=== PATIENT | male | born 1955 | race Caucasian/White ===

== ENCOUNTER 2018-01-14 01:32 | Inpatient (IN) | payer MEDICAID, OTHER ==
[2018-01-14 02:37] LABS: URINE BILIRUBIN NEGATIVE (NEGATIVE); URINE BLOOD NEGATIVE (NEGATIVE); URINE GLUCOSE (UA) NEGATIVE (NEGATIVE); URINE LEUKOCYTE ESTERASE NEGATIVE Leu/uL (NEGATIVE); URINE PROTEIN TRACE mg/dL (<30 mg/dL); URINE UROBILINOGEN 0.2 E.U./dL (<1 E.U./dL)
[2018-01-14 02:38] LABS: BASO # 0.04 K/mm3 (0.0-2.0); BASO % 0.4 % (0.0-3.0); EOS # 0.2 (0.0-0.7); EOS % 1.6 % (1.5-5.0); GRAN # 7.17 (1.4-6.5); GRAN % 62.7 % (50.0-68.0); HEMOGLOBIN 13.7 g/dL (14.0-18.0); LYMPH # 3.3 (1.2-3.4); MEAN CELL VOLUME 90.9 fl (80.0-105.0); MEAN CORPUSCULAR HEMOGLOBIN 29.8 pg (25.0-35.0); MEAN CORPUSCULAR HGB CONC 32.8 g/dl (31.0-37.0); MEAN PLATELET VOLUME 10.3 fl (7.0-11.0); MONO # 0.7 (0.1-0.6); MONO % 6.3 % (1.0-6.0); RBC 4.6 10^6/uL (3.5-6.1); RED CELL DISTRIBUTION WIDTH 12.9 % (11.5-14.5); WHITE BLOOD COUNT 11.4 10^3/ul (4.5-11.0)
[2018-01-14 02:40] LABS: URINE APPEARANCE CLEAR (CLEAR); URINE COLOR YELLOW (YELLOW)
[2018-01-14 02:46] LABS: PARTIAL THROMBOPLASTIN TIME 32.1 Seconds (25.1-36.5); PROTHROMBIN TIME 11.4 SECONDS (9.4-12.5)
[2018-01-14 02:48] LABS: ALB/GLOB RATIO 1.2 (1.1-1.8); ALBUMIN 4.2 g/dL (3.0-4.8); ALT/SGPT 38 U/L (7-56); AST/SGOT 27 U/L (17-59); BLOOD UREA NITROGEN 22 mg/dL (7-21); CALCIUM 9.5 mg/dL (8.4-10.5); GFR NON-AFRICAN AMERICAN > 60; LIPASE 110 U/L (23-300)
[2018-01-14 02:49] LABS: D DIMER < 200 ng/mlDDU (0-243)
[2018-01-14 02:51] LABS: URINE EPITHELIAL CELLS 0 - 2 /hpf (0-5); URINE RBC 0 - 2 /hpf (0-2); URINE WBC 0 - 2 /hpf (0-6)
[2018-01-14] MEDS ORDERED: Iohexol 350 MG/100 ML VIAL ONE (02:58)
[2018-01-14 03:05] LABS: TROPONIN I < 0.01 ng/mL
--- NOTE | 2018-01-14 03:12 | ED PDOC ---
Arrival/HPI - General Chief Complaint: Chest Pain Time Seen by Provider: 01/14/18 01:48 Historian: Patient - History of Present Illness Narrative History of Present Illness (Text): 01/14/18 03:14 62 year old male, whose past medical history includes Diabetes, Hyperlipidemia, hypertension, and Thayer's disease, presents to the emergency department with left sided chest and left sided abdominal pain, for about 10 hours. Patient states he was going to work at about 18:00 yesterday, when the pain started. Patient states the pain then began to get progressively worse. Patient states it hurts him to breath deep, and that it is painful to the touch. Patient denies any fevers, chills, headache, dizziness, nausea, vomiting, diarrhea, or any other complaint. Time/Duration: 24 hours Symptom Onset: Gradual Symptom Course: Unchanged Activities at Onset: Light Past Medical History - Provider Review Nursing Documentation Reviewed: Yes - Tetanus Immunization Tetanus Immunization: Up to Date - Endocrine/Metabolic Hx Endocrine Disorders: Yes Hx Diabetes Mellitus Type 2: Yes - Psychiatric Hx Psychophysiologic Disorder: No Hx Substance Use: No - Surgical History Hx Orthopedic Surgery: Yes (R HIP) - Anesthesia Hx Anesthesia: Yes Family/Social History - Physician Review Nursing Documentation Reviewed: Yes Family/Social History: No Known Family HX Smoking Status: Never Smoked Hx Alcohol Use: No Hx Substance Use: No Allergies/Home Meds Allergies/Adverse Reactions: Allergies No Known Allergies Allergy (Verified 01/05/15 16:57) Home Medications: Home Meds Medication Instructions Recorded Confirmed Metformin HCl [Metformin] 1,000 mg PO BID 01/05/15 01/05/15 RX: Prednisone [Sterapred Ds] 10 mg PO DAILY 01/05/15 01/05/15 Review of Systems - Physician Review All systems were reviewed & negative as marked: Yes - Review of Systems Constitutional: absent: Fevers, Night Sweats Cardiovascular: Chest Pain Gastrointestinal: Abdominal Pain. absent: Diarrhea, Nausea, Vomiting Neurological: absent: Headache, Dizziness Physical Exam - Physical Exam Narrative Physical Exam (Text): 01/14/18 03:28 Gen: VS reviewed, alert, well developed, well nourished, nontoxic, mild distress. ENT: normal pharynx. Eye: EOMI, PERRL. Neck: no JVD, supple, no adenopathy. CV: regular rate, regular rhythm, no rubs, no murmur, no gallops, S1, S2, pulses equal and strong. Pulm: no distress, clear to auscultation, no wheeze, no rhonchi, breath sounds equal, no rales. Abd: diffuse tenderness left lateral ribcage and LUQ, some guarding, no rebound, no rigidity, normal bowel sounds. Ext: no edema. Skin: good color, no rash, no cyanosis. Psych: responds appropriately to questions, normal affect. Neuro: oriented x 3, CN2-12 intact grossly, motor intact, sensation intact. Vital Signs Reviewed: Yes Vital Signs Temp Pulse Resp BP Pulse Ox 01/14/18 01:52 98.0 F 85 21 101/54 L 97 Temperature: Afebrile Blood Pressure: Hypotensive Pulse: Regular Respiratory Rate: Normal Appearance: Positive for: Well-Appearing, Non-Toxic, Comfortable Pain Distress: None Mental Status: Positive for: Alert and Oriented X 3 Finger Stick Blood Glucose: 118 Medical Decision Making ED Course and Treatment: 01/14/18 03:32 Impression: 62 year old male presents with left sided chest and left sided abdominal pain. Plan: -- CTA chest -- Toradol -- Tylenol -- Reassess and disposition Prior Visits: Notes and results from previous visits were reviewed. Progress Notes: 01/14/18 05:52 admit accepted by hospitalist, dr. alvarez. patient to be admitted for chest pain rule out acs. patient noted to have relative hypotension with marginal response to IVF. hydrocortison given with the consideration current clinical presentation could be adrenal insufficiency - Lab Interpretations Lab Results: 01/14/18 02:00 01/14/18 02:00 Lab Results 01/14/18 02:30: Urine Color Yellow, Urine Appearance Clear, Urine pH 6.0, Ur Specific [place] 1.025, Urine Protein Trace H, Urine Glucose (UA) Negative, Urine Ketones Negative, Urine Blood Negative, Urine Nitrate Negative, Urine Bilirubin Negative, Urine Urobilinogen 0.2, Ur Leukocyte Esterase Negative, Urine RBC 0 - 2, Urine WBC 0 - 2, Ur Epithelial Cells 0 - 2, Urine Bacteria None 01/14/18 02:00: Sodium 138, Potassium 3.9, Chloride 100, Carbon Dioxide 31, Anion Gap 12, BUN 22 H, Creatinine 0.9, Est GFR ( Amer) > 60, Est GFR (Non-Af Amer) > 60, Random Glucose 133 H, Calcium 9.5, Total Bilirubin 0.3, AST 27, ALT 38, Alkaline Phosphatase 53, Troponin I < 0.01, Total Protein 7.5, Album in 4.2, Globulin 3.4, Albumin/Globulin Ratio 1.2, Lipase 110 01/14/18 02:00: PT 11.4, INR 1.00, APTT 32.1, D-Dimer, Quantitative < 200 01/14/18 02:00: WBC 11.4 H, RBC 4.60, Hgb 13.7 L, Hct 41.8 L, MCV 90.9, MCH 29.8, MCHC 32.8, RDW 12.9, Plt Count 232, MPV 10.3, Gran % 62.7, Lymph % (Auto) 29.0, [place] % (Auto) 6.3 H, Eos % (Auto) 1.6, Baso % (Auto) 0.4, Gran # 7.17 H, Lymph # (Auto) 3.3, [place] # (Auto) 0.7 H, Eos # (Auto) 0.2, Baso # (Auto) 0.04 - RAD Interpretation Narrative RAD Interpretations (Text): 01/14/18 04:19 CTA OF THE CHEST WITH IV CONTRAST CLINICAL HISTORY: Suspected pulmonary embolus. TECHNIQUE: Axial and reformatted sagittal and coronal images of the chest obta ined after bolus IV contrast administration. FINDINGS: Bilateral basilar subsegmental atelectatic pulmonary changes. Bronchiectatic changes in the right lower lobe. Normal enhancement of the main pulmonary artery and right and left pulmonary arteries. Normal enhancement of the bilateral peripheral pulmonary arteries. There is no demonstrated pulmonary embolism. Normal thoracic aorta and visualized great vessels. There is no demonstrated aortic dissection. Mildly enlarged heart and normal pericardium. Normal mediastinum. Normal hilar regions. Normal visualized trachea and bronchi. The lungs are well expanded. Normal pulmonary parenchyma. Normal pleura. Normal chest wall structures. Normal osseous structures. Normal visualized upper abdomen. IMPRESSION: No demonstrated pulmonary embolism or arterial dissection. Bronchiectatic changes of the right lower lobe. Bilateral basilar atelectatic pulmonary changes. Radiology Orders: 01/14/18 02:24 ANGIO CHEST PE PROTOCOL [CT] Stat Cna Caregiver: Radiologist - Medication Orders Current Medication Orders: Discontinued Medications Acetaminophen (Tylenol 325mg Tab) 975 mg PO STAT STA Stop: 01/14/18 02:25 Last Admin: 01/14/18 02:35 Dose: 975 mg Ketorolac Tromethamine (Toradol) 30 mg IVP STAT STA Stop: 01/14/18 02:25 Last Admin: 01/14/18 02:32 Dose: 30 mg MAR Pain Assessment Document 01/14/18 02:32 CNR (Rec: 01/14/18 02:35 CNR [id number]) Pain Reassessment Is this a pain reassessment? No IVP Administration Document 01/14/18 02:32 CNR (Rec: 01/14/18 02:35 CNR [id number]) Charges for Administration # of IVP Administrations 1 - Scribe Statement The provider has reviewed the documentation as recorded by the Heidyibphil Livingston Provider Scribe Attestation: All medical record entries made by the Scribe were at my direction and personally dictated by me. I have reviewed the chart and agree that the record accurately reflects my personal performance of the history, physical exam, medical decision making, and the department course for this patient. I have also personally directed, reviewed, and agree with the discharge instructions and disposition. Disposition/Present on Arrival - Present on Arrival Any Indicators Present on Arrival: No History of DVT/PE: No History of Uncontrolled Diabetes: Yes Urinary Catheter: No History of Decub. Ulcer: No History Surgical Site Infection Following: None - Disposition Have Diagnosis and Disposition been Completed?: Yes Diagnosis: Hypotension Disposition: HOSPITALIZED Disposition Time: 05:43 Patient Plan: Admission Patient Problems: Current Active Problems Problem Status Onset Hypotension Acute Condition: STABLE Forms: [place] [employer]TENDED [employer] ([place])
[2018-01-14] MEDS ORDERED: Sodium Chloride 0.9% 1,000 ML IV STA ×3 (03:31→05:32)
--- NOTE | 2018-01-14 06:55 | CP.PCM.HP ---
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 Patient states pain is sharp and worsened with deep respiration. Patient presented with complaints of gradually worsening 8/10 left sided flank pain radiating to the left flank with associated chest pain that began at 1800. Pain was intolerable by 0100, prompting him to present to the ED. Symptoms worsen with palpation and respiration. He notes that CP is localized to the left axillary region and radiates down the left flank. Pain decreased to his baseline 3/10 pain upon evaluation. He has had similar symptoms in the past. He also complains of left scrotal pain that began 2 days ago. Denies trauma, erythema, and discharge. Patient is compliant with medication regimens for chronic conditions, but could not provide list of current medications. Patient denies any fevers, chills, headache, dizziness, nausea, vomiting, diarrhea, changes in urination and bowel habits, diaphoresis, hematuria, dysuria. No other acute complaints. PMHx: DM, HTN, Hood's Disease (diagnosed in 2001) PSHx: denies All: NKDA Social: denies ETOH tobacco and substance abuse Fam Hx: denies Meds: compliant but no list provided. Please follow up with patient and pharmacy PCP: Dr. Sawant Endocrine: Dr. Koenig Present on Admission - Present on Admission Any Indicators Present on Admission: No Review of Systems - Review of Systems Review of Systems: 12 point ROS was completed and negative except as described in HPI. Past Patient History - Tetanus Immunizations Tetanus Immunization: Up to Date - Past Social History Smoking Status: Never Smoked - ENDOCRINE/METABOLIC Hx Endocrine Disorders: Yes Hx Diabetes Mellitus Type 2: Yes - PSYCHIATRIC Hx Psychophysiologic Disorder: No Hx Substance Use: No - SURGICAL HISTORY Hx Orthopedic Surgery: Yes (R HIP) - ANESTHESIA Hx Anesthesia: Yes Meds Allergies/Adverse Reactions: Allergies Allergy/AdvReac Type Severity Reaction Status Date / Time No Known Allergies Allergy Verified 01/05/15 16:57 Physical Exam - Constitutional Appears: Well, Toxic, No Acute Distress - Head Exam Head Exam: ATRAUMATIC, NORMOCEPHALIC - Eye Exam Eye Exam: EOMI, Normal appearance Pupil Exam: PERRL - ENT Exam ENT Exam: Mucous Membranes Moist - Neck Exam Neck exam: Positive for: Normal Inspection. Negative for: Tenderness, Thyromega ly - Respiratory Exam Respiratory Exam: Chest Wall Tenderness (TTP at placement of greatest pain on 5th midclavicular line), Decreased Breath Sounds, Clear to Auscultation Bilateral, NORMAL BREATHING PATTERN. absent: Accessory Muscle Use, Rales, Rhonchi, Wheezes, Respiratory Distress - Cardiovascular Exam Cardiovascular Exam: RRR, +S1, +S2 - GI/Abdominal Exam GI & Abdominal Exam: Hyperactive Bowel Sounds, Soft. absent: Distended, Guarding, Hernia, Rebound, Rigid, Tenderness Additional comments: morbid obesity. + suprapubic tenderness - Exam Exam: Testicular Tenderness (L>R). absent: Uretheral Discharge External exam: absent: Ecchymosis, Erythema, Lesions, Swelling - Extremities Exam Extremities exam: Positive for: full ROM, pedal edema, pedal pulses present - Back Exam Back exam: CVA tenderness (L). absent: CVA tenderness (R), rash noted, vertebral tenderness - Neurological Exam Neurological exam: Alert, CN II-XII Intact, Normal Gait, Oriented x3 - Psychiatric Exam Psychiatric exam: Normal Affect, Normal Mood - Skin Skin Exam: Dry, Intact, Normal Color, Warm Results - Vital Signs Recent Vital Signs: Last Vital Signs Temp 98.0 F 01/14/18 01:52 Pulse 74 01/14/18 05:50 Resp 19 01/14/18 05:50 BP 94/55 L 01/14/18 05:50 Pulse Ox 96 01/14/18 05:50 - Labs Result Diagrams: 01/14/18 02:00 01/14/18 02:00 Labs: Laboratory Results - last 24 hr 01/14/18 01/14/18 01/14/18 02:00 02:00 02:00 WBC 11.4 H RBC 4.60 Hgb 13.7 L Hct 41.8 L MCV 90.9 MCH 29.8 MCHC 32.8 RDW 12.9 Plt Count 232 MPV 10.3 Gran % 62.7 Lymph % (Auto) 29.0 [place] % (Auto) 6.3 H Eos % (Auto) 1.6 Baso % (Auto) 0.4 Gran # 7.17 H Lymph # (Auto) 3.3 [place] # (Auto) 0.7 H Eos # (Auto) 0.2 Baso # (Auto) 0.04 PT 11.4 INR 1.00 APTT 32.1 D-Dimer, Quantitative < 200 Sodium 138 Potassium 3.9 Chloride 100 Carbon Dioxide 31 Anion Gap 12 BUN 22 H Creatinine 0.9 Est GFR ( Amer) > 60 Est GFR (Non-Af Amer) > 60 Random Glucose 133 H Calcium 9.5 Total Bilirubin 0.3 AST 27 ALT 38 Alkaline Phosphatase 53 Troponin I < 0.01 Total Protein 7.5 Albumin 4.2 Globulin 3.4 Albumin/Globulin Ratio 1.2 Lipase 110 Urine Color Urine Appearance Urine pH Ur Specific [place] Urine Protein Urine Glucose (UA) Urine Ketones Urine Blood Urine Nitrate Urine Bilirubin Urine Urobilinogen Ur Leukocyte Esterase Urine RBC Urine WBC Ur Epithelial Cells Urine Bacteria 01/14/18 02:30 WBC RBC Hgb Hct MCV MCH MCHC RDW Plt Count MPV Gran % Lymph % (Auto) [place] % (Auto) Eos % (Auto) Baso % (Auto) Gran # Lymph # (Auto) [place] # (Auto) Eos # (Auto) Baso # (Auto) PT INR APTT D-Dimer, Quantitative Sodium Potassium Chloride Carbon Dioxide Anion Gap BUN Creatinine Est GFR ( Amer) Est GFR (Non-Af Amer) Random Glucose Calcium Total Bilirubin AST ALT Alkaline Phosphatase Troponin I Total Protein Albumin Globulin Albumin/Globulin Ratio Lipase Urine Color Yellow Urine Appearance Clear Urine pH 6.0 Ur Specific [place] 1.025 Urine Protein Trace H Urine Glucose (UA) Negative Urine Ketones Negative Urine Blood Negative Urine Nitrate Negative Urine Bilirubin Negative Urine Urobilinogen 0.2 Ur Leukocyte Esterase Negative Urine RBC 0 - 2 Urine WBC 0 - 2 Ur Epithelial Cells 0 - 2 Urine Bacteria None Assessment & Plan - Assessment and Plan (Free Text) Assessment: 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 Plan: Abdominal pain 2/2 Adrenal Crisis vs Pyelonephritis vs CT without contrast Patient reports compliance Hydrocortisone 50 mg IVP BID Leukocytosis 11.4 likely due to chronic steroid use NS @ 100 cc/hr CTA: No demonstrated pulmonary embolism or arterial dissection. Bronchiectatic changes of the right lower lobe. Bilateral basilar atelectatic pulmonary changes. D-dimer <200 F/u CT abd without contrast F/u Cortisol, Aldosterone, Plasma renin F/u Free T4 and TSH F/U Prolactin F/u Urine cx Endo consult - Dr. Leon - recommendations appreciated VSq4 CP r/o ACS TTP, lasting hours, describes pain as sharp ASA 162 mg and Toradol 30 mg IVP given in ED First trop neg. Trend trops q6 x2 Cardiology consult - Dr. Peacock - recommendations appreciated L Testicular Pain F/U Testicular Duplex U/S to r/o torsion UA neg with trace protein DM ISS Fingersticks f/u a1c and lipid panel Excessive Day Time Drowsiness ? CABRERA likely f/u outpatient Pulm consult - Dr. Osborne - recommendations appreciated PPx Heparin Protonix 40 IVP Patient seen, case reviewed and plan approved by Dr. Ceballos. Shyam Gates, PGY-1 <Miley Ceballos - Last Filed: 01/14/18 10:56> Results - Vital Signs Recent Vital Signs: Last Vital Signs Temp 98.0 F 01/14/18 01:52 Pulse 75 01/14/18 08:40 Resp 23 01/14/18 08:40 BP 99/63 L 01/14/18 08:40 Pulse Ox 96 01/14/18 08:40 - Labs Result Diagrams: 01/14/18 02:00 01/14/18 02:00 Labs: Laboratory Results - last 24 hr 01/14/18 01/14/18 01/14/18 02:00 02:00 02:00 WBC 11.4 H RBC 4.60 Hgb 13.7 L Hct 41.8 L MCV 90.9 MCH 29.8 MCHC 32.8 RDW 12.9 Plt Count 232 MPV 10.3 Gran % 62.7 Lymph % (Auto) 29.0 [place] % (Auto) 6.3 H Eos % (Auto) 1.6 Baso % (Auto) 0.4 Gran # 7.17 H Lymph # (Auto) 3.3 [place] # (Auto) 0.7 H Eos # (Auto) 0.2 Baso # (Auto) 0.04 PT 11.4 INR 1.00 APTT 32.1 D-Dimer, Quantitative < 200 Sodium 138 Potassium 3.9 Chloride 100 Carbon Dioxide 31 Anion Gap 12 BUN 22 H Creatinine 0.9 Est GFR ( Amer) > 60 Est GFR (Non-Af Amer) > 60 POC Glucose (mg/dL) Random Glucose 133 H Calcium 9.5 Total Bilirubin 0.3 AST 27 ALT 38 Alkaline Phosphatase 53 Troponin I < 0.01 Total Protein 7.5 Albumin 4.2 Globulin 3.4 Albumin/Globulin Ratio 1.2 Lipase 110 Free T4 TSH 3rd Generation Urine Color Urine Appearance Urine pH Ur Specific [place] Urine Protein Urine Glucose (UA) Urine Ketones Urine Blood Urine Nitrate Urine Bilirubin Urine Urobilinogen Ur Leukocyte Esterase Urine RBC Urine WBC Ur Epithelial Cells Urine Bacteria 01/14/18 01/14/18 01/14/18 02:00 02:02 02:30 WBC RBC Hgb Hct MCV MCH MCHC RDW Plt Count MPV Gran % Lymph % (Auto) [place] % (Auto) Eos % (Auto) Baso % (Auto) Gran # Lymph # (Auto) [place] # (Auto) Eos # (Auto) Baso # (Auto) PT INR APTT D-Dimer, Quantitative Sodium Potassium Chloride Carbon Dioxide Anion Gap BUN Creatinine Est GFR ( Amer) Est GFR (Non-Af Amer) POC Glucose (mg/dL) 118 H Random Glucose Calcium Total Bilirubin AST ALT Alkaline Phosphatase Troponin I Total Protein Albumin Globulin Albumin/Globulin Ratio Lipase Free T4 0.75 L TSH 3rd Generation 1.67 Urine Color Yellow Urine Appearance Clear Urine pH 6.0 Ur Specific [place] 1.025 Urine Protein Trace H Urine Glucose (UA) Negative Urine Ketones Negative Urine Blood Negative Urine Nitrate Negative Urine Bilirubin Negative Urine Urobilinogen 0.2 Ur Leukocyte Esterase Negative Urine RBC 0 - 2 Urine WBC 0 - 2 Ur Epithelial Cells 0 - 2 Urine Bacteria None 01/14/18 07:19 WBC RBC Hgb Hct MCV MCH MCHC RDW Plt Count MPV Gran % Lymph % (Auto) [place] % (Auto) Eos % (Auto) Baso % (Auto) Gran # Lymph # (Auto) [place] # (Auto) Eos # (Auto) Baso # (Auto) PT INR APTT D-Dimer, Quantitative Sodium Potassium Chloride Carbon Dioxide Anion Gap BUN Creatinine Est GFR ( Amer) Est GFR (Non-Af Amer) POC Glucose (mg/dL) 192 H Random Glucose Calcium Total Bilirubin AST ALT Alkaline Phosphatase Troponin I Total Protein Albumin Globulin Albumin/Globulin Ratio Lipase Free T4 TSH 3rd Generation Urine Color Urine Appearance Urine pH Ur Specific [place] Urine Protein Urine Glucose (UA) Urine Ketones Urine Blood Urine Nitrate Urine Bilirubin Urine Urobilinogen Ur Leukocyte Esterase Urine RBC Urine WBC Ur Epithelial Cells Urine Bacteria Attending/Attestation - Attestation I have personally seen and examined this patient.: Yes I have fully participated in the care of the patient.: Yes I have reviewed all pertinent clinical information: Yes Notes (Text): 01/14/18 10:46 Note: Please omit "vs CT without contrast"under Abdominal pain in assessment. Pt seen with resident by the bedside. Case discussed in detail. Agree with documentation,assessment and plan of treatment.
[2018-01-14] MEDS: Insulin Reg-LOW-Coverage SC SCH ×4 (07:23→21:54)
[2018-01-14] MEDS ORDERED: Insulin Regular 1 UNITS/0.01 ML ML ONE (07:24)
[2018-01-14 08:26] LABS: FREE T4 0.75 ng/dL (0.78-2.19)
--- NOTE | 2018-01-14 08:53 | CT ---
Date of service: 01/14/2018 PROCEDURE: CT Chest with contrast (Pulmonary Angiogram) HISTORY: pulmonary embolism COMPARISON: None available. TECHNIQUE: Axial computed tomography images were obtained of the chest in the pulmonary arterial phase of enhancement. Coronal and sagittal reformatted images were created and reviewed. Maximum intensity projection (MIP) reconstructed images in the following planes: Sagittal and coronal Intravenous contrast dose: 100 cc Omnipaque 350 Mean Hounsfield value in the main pulmonary artery: 297.92 Radiation dose: Total exam DLP = 588.07 mGy-cm. This CT exam was performed using one or more of the following dose reduction techniques: Automated exposure control, adjustment of the mA and/or kV according to patient size, and/or use of iterative reconstruction technique. FINDINGS: PULMONARY ARTERIES: Unremarkable. No pulmonary embolism. AORTA: No acute findings. No thoracic aortic aneurysm. LUNGS: Scarring at the lung bases. No suspicious pulmonary nodules, masses or infiltrates. PLEURAL SPACES: Unremarkable. No effusion or pneumothorax. HEART: Unremarkable. No cardiomegaly. No significant pericardial effusion. LYMPH NODES: No lymphadenopathy. BONES, CHEST WALL: Unremarkable. No fracture or destructive lesion OTHER FINDINGS: Unremarkable. IMPRESSION: Unremarkable CT pulmonary angiogram. No pulmonary embolus. Concordant results (preliminary interpretation) provided by [facility]. Procedure Completed: 03:17. Preliminary Report: Dictated and Authenticated: 03:44. Final Interpretation: 08:48.
--- NOTE | 2018-01-14 10:40 | CT ---
Date of service: 01/14/2018 PROCEDURE: CT Abdomen and Pelvis without intravenous contrast HISTORY: r/o nephrolithiasis r/o pyelonephritis COMPARISON: None. TECHNIQUE: Unenhanced. Neither IV nor oral contrast administered Radiation dose: Total exam DLP = 1556.30 mGy-cm. This CT exam was performed using one or more of the following dose reduction techniques: Automated exposure control, adjustment of the mA and/or kV according to patient size, and/or use of iterative reconstruction technique. FINDINGS: LOWER THORAX: Atelectasis/scarring at the lung bases. LIVER: Unremarkable. No gross lesion or ductal dilatation. GALLBLADDER AND BILE DUCTS: Unremarkable. PANCREAS: Unremarkable. No gross lesion or ductal dilatation. SPLEEN: Unremarkable. ADRENALS: Calcifications within both adrenal glands. Findings are nonspecific most frequently seen in post infectious processes or prior hemorrhagic conditions. KIDNEYS AND URETERS: Unremarkable. No hydronephrosis. No solid mass. Contrast identified in the kidneys from prior CT pulmonary angiogram. VASCULATURE: Unremarkable. No aortic aneurysm. BOWEL: Constipation without fecal impaction or obstruction. Diverticulosis without an acute inflammatory component or other associated pathologic process. APPENDIX: Unremarkable. Normal appendix. PERITONEUM: Unremarkable. No free fluid. No free air. LYMPH NODES: Unremarkable. No enlarged lymph nodes. BLADDER: Unremarkable. Contrast identified in the urinary bladder from prior CT pulmonary angiogram. REPRODUCTIVE: Unremarkable. BONES: No acute fracture. OTHER FINDINGS: None. IMPRESSION: No acute findings related to/accounting for the clinical presentation. Additional benign and/or incidental findings described above. Concordant results (preliminary interpretation) provided by [facility]. Procedure Completed: 06:41. Preliminary Report: Dictated and Authenticated: 08:00. Final Interpretation: 10:36. January 14, 2018
[2018-01-14 11:43] LABS: HDL CHOLESTEROL 31 mg/dL (29-60)
--- NOTE | 2018-01-14 11:43 | CARD ---
APPROVED REPORT Date of service: 01/14/2018 EKG Measurement Heart [id number] <Conclusion> Normal sinus rhythm Left axis deviation Low voltage QRS Abnormal ECG
[2018-01-14] MEDS: Sodium Chloride 0.9% 1,000 ML IV SCH ×2 (11:46→23:07)
[2018-01-14 11:54] LABS: LDL CHOLESTEROL 94 mg/dL (0-129); TROPONIN I < 0.01 ng/mL
--- NOTE | 2018-01-14 12:33 | US ---
Date of service: 01/14/2018 HISTORY: epdidimytitis? r/o torsion TECHNIQUE: Realtime sonography through the scrotum with color and doppler flow. COMPARISON: None Available. FINDINGS: RIGHT TESTICLE: Measures 2.5 x 3.5 x 4.5 cm. Normal echotexture and flow. RIGHT EPIDIDYMIS: Epididymal head measures 0.9 x 1.9 cm. Grossly unremarkable appearance with normal flow. LEFT TESTICLE: Measures 2.6 x 3.4 x 5.0 cm. Normal echotexture and flow. LEFT EPIDIDYMIS: Epididymal head measures 1.0 x 1.7 cm. Simple cyst left epididymis 4 x 3 mm HYDROCELE: Small, left. Trace fluid right likely physiological. VARICOCELE: None. OTHER FINDINGS: None. IMPRESSION: Negative study for epididymitis, orchitis, torsion or other acute pathologic process
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
[2018-01-14 16:04] VITALS: BMI 26.1
[2018-01-14] MEDS ORDERED: Pneumococcal 23-Valent Vaccine IM ONE (16:04)
[2018-01-14] MEDS ORDERED: Influenza Vaccine 60 mcg/0.5 mL SYR (4YR UP) IM ONE (16:04)
[2018-01-14 19:27] LABS: TROPONIN I < 0.01 ng/mL
[2018-01-15 06:12] VITALS: O2SAT 98
[2018-01-15 06:52] LABS: BASO # 0.02 K/mm3 (0.0-2.0); BASO % 0.2 % (0.0-3.0); EOS # 0.2 (0.0-0.7); EOS % 1.8 % (1.5-5.0); GRAN # 7.07 (1.4-6.5); GRAN % 62.5 % (50.0-68.0); HEMOGLOBIN 12.4 g/dL (14.0-18.0); LYMPH # 3.4 (1.2-3.4); LYMPH % 30.4 % (22.0-35.0); MEAN CELL VOLUME 91.6 fl (80.0-105.0); MEAN CORPUSCULAR HEMOGLOBIN 29.7 pg (25.0-35.0); MEAN CORPUSCULAR HGB CONC 32.5 g/dl (31.0-37.0); MEAN PLATELET VOLUME 9.8 fl (7.0-11.0); MONO # 0.6 (0.1-0.6); MONO % 5.1 % (1.0-6.0); RBC 4.17 10^6/uL (3.5-6.1); RED CELL DISTRIBUTION WIDTH 13.1 % (11.5-14.5); WHITE BLOOD COUNT 11.3 10^3/ul (4.5-11.0)
[2018-01-15 07:20] LABS: ALB/GLOB RATIO 1.2 (1.1-1.8); ALBUMIN 3.6 g/dL (3.0-4.8); ALT/SGPT 38 U/L (7-56); AST/SGOT 24 U/L (17-59); BLOOD UREA NITROGEN 15 mg/dL (7-21); CALCIUM 8.8 mg/dL (8.4-10.5); GFR NON-AFRICAN AMERICAN > 60
--- NOTE | 2018-01-15 07:39 | CON ---
DATE: 01/14/2018 ENDOCRINOLOGY CONSULTATION Room: 269 HISTORY OF PRESENT ILLNESS: This is a 62-year-old male with known history of type 2 diabetes, hypertension, and also Toone's disease, on long-term steroid replacement therapy, presenting here with sudden onset of precordial chest pain and supervening left-sided flank pain prompting this ER consult and subsequent admission. PAST MEDICAL HISTORY: As mentioned above, history of type 2 diabetes, currently on metformin given as 1 g b.i.d., history of hypertension and dyslipidemia, history of Toone's disease, currently on prednisone taken as 10 mg once daily. FAMILY HISTORY: Positive for hypertension and heart disease. SOCIAL HISTORY: The patient has supportive family. No known substance abuse history. He is a trash collector truck driver as noted. REVIEW OF SYSTEMS: Admits to generalized body weakness with supervening bouts of dizziness and lightheadedness worse on the day of admission. Admits to sudden onset of precordial chest pain with supervening shortness of breath, especially on exertion. His oral intake has been variable with nausea, dyspepsia and upper abdominal pain localized to the left flank area. PHYSICAL EXAMINATION: This is an average-built male, in no apparent distress with a blood pressure of 140/80, pulse of 70 beats per minute regular, temperature 98, respirations 20, height is 5 feet 6 inches, weight is 162 pounds. HEENT: Head, normocephalic. Eyes, anicteric with pink conjunctivae. Funduscopy not possible at this time. Ears, nose, and throat otherwise normal. Neck: Supple. Thyroid gland is normal in size. No carotid bruits or cervical adenopathy. Cardiopulmonary: Some adynamic precordium. S1, S2 are rapid and regular. Lungs: Clear to auscultation. Abdomen is flat, soft, positive bowel sounds. Extremities: No peripheral edema. Pulses are +2 bilaterally. LABORATORY DATA: His chemistry showed a BUN of 22, sodium 138, potassium 3.9, chloride 100, CO2 of 31, glucose 133 and creatinine 0.9. His glucose levels are starting to fluctuate as expected with the intercurrent steroid therapy, and the glucose values have ranged from 192 to 323 mg/dL. His TSH is 1.67. ASSESSMENT: This is a 62-year-old male with known history of Toone's disease, on long-term steroid replacement, presenting here with precordial chest pain and upper abdominal pain and currently undergoing workup and management as noted. PLAN OF MANAGEMENT: We will concur with the IV steroid therapy as given initially, and we will obtain a fasting serum cortisol level and an ACTH level accordingly. As his cardiac and GI workup is completed, then he can be switched over to his oral steroid therapy as indicated. We will obtain serial chemistries and supplement accordingly as needed. We will also continue the IV hydration as given. We will follow with you. Brooklynn Leon MD
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
[2018-01-15] MEDS: Insulin Reg-LOW-Coverage SC SCH ×2 (08:50→14:03)
[2018-01-15] MEDS ORDERED: oxyCODONE 5 mg Immediate Release Tab PO PRN (14:21)
--- NOTE | 2018-01-15 16:52 | CARD ---
APPROVED REPORT Date of service: 01/15/2018 EKG Measurement Heart [id number] <Conclusion> Sinus rhythm with 1st degree AV block Low voltage QRS Septal infarct, age undetermined Abnormal ECG
[2018-01-15 17:02] VITALS: BP 116/67; PULSE 80; RESP 20; TEMP 97.9
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
--- NOTE | 2018-01-15 17:47 | PN ---
DATE: 01/15/2018 ENDO FOLLOWUP NOTE LOCATION: In room 269. SUBJECTIVE: This is a 62-year-old male with known history of [place]'s disease, presenting here with generalized body weakness and progressive dizziness and lightheadedness and has been evaluated to have a subtherapeutic steroid replacement therapy with a cortisol level of 0.6 done fasting in the morning as ordered. His chemistries showed a BUN of 22, sodium 138, potassium 3.9, chloride of 100, CO2 of 31, glucose 133 and creatinine 0.9. His hemoglobin A1c is 9.7%. So at this time, we will modify his oral steroid replacement therapy to hydrocortisone given as 20 mg at 9:00 a.m. and 10 mg at 6:00 p.m. in the evening as ordered. We will obtain serial chemistries and supplement accordingly as needed. We will follow. Brooklynn Leon MD
[2018-01-16] MEDS ORDERED: Pantoprazole 40 mg EC Tab PO SCH (07:30)
--- NOTE | 2018-01-16 10:42 | PN ---
DATE: 01/15/2018 LOCATION: The patient is in room 269, bed 2. SUBJECTIVE: The patient was admitted with sharp pain on the left axillary line in the lower quadrant with localized tenderness. The patient's pain was musculoskeletal. The patient was found to have severe sleep apnea and while he was sleeping, he gets bradycardia also. Looks like a few beats skipping, which looks like Wenckebach type of rhythm. Also, at one time it looked like he skipped one beat with 2:1 type 2 block; however, all these arrhythmias were during sleep, so the patient has severe sleep apnea and he was emphasized to go see pulmonary physician and get evaluated for sleep apnea and he was made well aware of arrhythmias and told him that it is very important right away to see a pulmonary physician and then his heart will be monitored and later on we advised him that we will do the nuclear stress test. He said he will follow outpatient for pulmonary and as well as further cardiac workup. He was also advised to lose weight. Min Peacock MD
== END 2018-01-15 17:39 | disposition home or self-care (01) | DRG 392 ==
LOC: ED 01:32 → ERH 05:49 → 2RNO 08:59
PROVIDERS: ADMIT Internal Medicine; ATTEND Internal Medicine
DX: R10.12 Left upper quadrant pain (principal); R07.2 Precordial pain; E27.1 Primary adrenocortical insufficiency; E11.9 Type 2 diabetes mellitus without complications; G47.33 Obstructive sleep apnea (adult) (pediatric); T38.0X5A Adverse effect of glucocorticoids and synthetic analogues, initial encounter; D72.829 Elevated white blood cell count, unspecified; R00.1 Bradycardia, unspecified; E78.5 Hyperlipidemia, unspecified; I10 Essential (primary) hypertension; N50.82 Scrotal pain; E66.01 Morbid (severe) obesity due to excess calories; Z79.52 Long term (current) use of systemic steroids; K59.00 Constipation, unspecified